=== PATIENT | male | born 1940 | race Caucasian/White ===

== ENCOUNTER 2017-03-11 17:44 | Inpatient (IN) | payer MEDICARE, OTHER ==
[~2017-03-11] VITALS: Ht 190.5 cm; Wt 141.5 kg
[2017-03-11] MEDS ORDERED: morphine SULFATE 10 MG/ML, 1ML IVPush PRN (21:00)
[2017-03-11] MEDS ORDERED: BISACODYL 10 MG SUPP PR PRN (21:00)
[2017-03-11] MEDS ORDERED: POLYETHYLENE GLYCOL 17 GM PACKET PO PRN (21:00)
[2017-03-11] MEDS ORDERED: OXYcodone IR 5MG TABLET PO PRN (21:00)
[2017-03-11] MEDS ORDERED: ENALAPRILAT 1.25 MG/ML, 2ML IVPush PRN (21:00)
[2017-03-11] MEDS ORDERED: ONDANSETRON 2MG/ML, 2ML IVPush PRN (21:00)
[2017-03-11] MEDS ORDERED: ACETAMINOPHEN 325 MG TABLET PO PRN (21:00)
[2017-03-11] MEDS ORDERED: PLEASE ENTER HEIGHT AND WEIGHT MC SCH (22:00)
[2017-03-11] MEDS ORDERED: PLEASE ENTER ALLERGIES MC SCH ×4 (22:00→23:45)
[2017-03-11] MEDS ORDERED: FLUO20CA8 PO (22:20)
[2017-03-11] MEDS ORDERED: BENA1TAB PO (22:22)
[2017-03-11] MEDS ORDERED: ASPI-496 PO (22:23)
[2017-03-11] MEDS ORDERED: FINA5TAB4 PO (22:24)
[2017-03-11 22:36] VITALS: BP 119/79
[2017-03-11 22:37] VITALS: BP 119/79
[2017-03-12 00:05] LABS: PATH.CAST-FLAG NOT PRESENT; SPERM-FLAG NOT PRESENT; SRC-FLAG NOT PRESENT; XTAL-FLAG NOT PRESENT; YLC-FLAG NOT PRESENT
[2017-03-12 02:00] VITALS: BP 125/76
[2017-03-12 05:16] LABS: HEMATOCRIT 39.2 % (39.2-51.8); HEMOGLOBIN 12.9 g/dL (13.7-18.0); WHITE BLOOD COUNT 9.7 x10^3/uL (3.4-10)
[2017-03-12 05:29] LABS: ASPARTATE AMINO TRANSFERASE 18 U/L (15-37); BLOOD UREA NITROGEN 17 mg/dL (7-18)
[2017-03-12] MEDS: BENAZEPRIL 10 MG TABLET PO SCH (08:50)
[2017-03-12] MEDS: HYDROCHLOROTHIAZIDE 12.5 MG CAPSULE PO SCH (08:51)
[2017-03-12] MEDS: FLUOXETINE 20 MG CAPSULE PO SCH (08:51)
[2017-03-12] MEDS: FINASTERIDE 5 MG TABLET PO SCH (08:51)
[2017-03-12] MEDS ORDERED: SENNA/DOCUSATE TABLET PO SCH (09:00)
[2017-03-12 09:02] VITALS: BP 127/79
[2017-03-12 13:39] VITALS: BP 154/91
[2017-03-12] MEDS ORDERED: EPINEPHRINE 1 MG/ML, 1ML ONE (18:24)
[2017-03-12] MEDS ORDERED: LIDOCAINE/PF 1%, 30ML ONE (18:24)
[2017-03-12] MEDS ORDERED: ROPIvacaine/PF 0.5%, 30 ML ONE (18:24)
[2017-03-12] MEDS ORDERED: BUPIVACAINE/PF 0.5% ONE (18:27)
[2017-03-12] MEDS ORDERED: FENTANYL PF 250 MCG/5ML ONE (18:27)
[2017-03-12] MEDS ORDERED: HYDROmorphone 1 MG/ML, 1ML IV PRN ×2 (18:30→22:30)
[2017-03-12] MEDS ORDERED: hydrALAzine 20 MG/ML, 1ML IV PRN (18:30)
[2017-03-12] MEDS ORDERED: ALBUTEROL/IPRATROPIUM 2.5MG/0.5MG, 3 ML NPPB PRN (18:30)
[2017-03-12] MEDS ORDERED: METOPROLOL 1 MG/ML, 5ML IV PRN (18:30)
[2017-03-12] MEDS ORDERED: FENTANYL PF 100 MCG/2ML IV PRN (18:30)
[2017-03-12] MEDS ORDERED: PROMETHAZINE 25 MG/ML, 1ML IV PRN (18:30)
[2017-03-12] MEDS ORDERED: OXYcodone 5 MG/5 ML ORAL.SOL UDC PO PRN (18:30)
[2017-03-12] MEDS ORDERED: DEXAMETHASONE 4 MG/ML, 1ML ONE (18:45)
[2017-03-12] MEDS ORDERED: ONDANSETRON 2MG/ML, 2ML ONE (18:45)
[2017-03-12] MEDS ORDERED: KETOROLAC 30 MG/1 ML ONE (18:45)
[2017-03-12] MEDS ORDERED: SUCCINYLCHOLINE 20 MG/ML, 10ML ONE (18:45)
[2017-03-12] MEDS ORDERED: PHENYLEPHRINE 10 MG/ML ONE (18:45)
[2017-03-12] MEDS ORDERED: METOPROLOL 1 MG/ML, 5ML ONE (18:45)
[2017-03-12] MEDS ORDERED: EPHEDRINE 50 MG/ML, 1ML ONE (18:45)
[2017-03-12] MEDS ORDERED: PROPOFOL 10 MG/ML, 20ML ONE (18:45)
[2017-03-12] MEDS ORDERED: CEFAZOLIN 1,000 MG ONE (18:45)
[2017-03-12] MEDS ORDERED: TRANEXAMIC ACID 100 MG/ML, 10ML ONE ×2 (19:17)
[2017-03-12] MEDS ORDERED: ACETAMINOPHEN 650 MG/20.3 ML UDC ONE (20:57)
[2017-03-12] MEDS ORDERED: ACETAMINOPHEN 325 MG TABLET ONE (20:57)
[2017-03-12] MEDS ORDERED: OXYcodone 5 MG/5 ML ORAL.SOL UDC ONE (20:58)
[2017-03-12] MEDS ORDERED: BISACODYL 10 MG SUPP PR PRN (22:30)
[2017-03-12] MEDS ORDERED: HYDROmorphone 1 MG/ML, 1ML IM PRN (22:30)
[2017-03-12] MEDS ORDERED: PROMETHAZINE 25 MG/ML, 1ML IM PRN (22:30)
[2017-03-12] MEDS ORDERED: ALUMINUM/MAG/SIMETHICONE 30 ML UDC PO PRN (22:30)
[2017-03-12] MEDS ORDERED: SENNA/DOCUSATE TABLET PO PRN (22:30)
[2017-03-12] MEDS ORDERED: MAGNESIUM HYDROXIDE 8%, 30ML UDC PO PRN (22:30)
[2017-03-12] MEDS ORDERED: ACETAMINOPHEN 325 MG TABLET PO PRN (22:30)
[2017-03-12] MEDS ORDERED: ONDANSETRON 2MG/ML, 2ML IV PRN (22:30)
[2017-03-12] MEDS: CEFAZOLIN PMX 2GM/50ML 50 ML IVPB SCH (23:20)
[2017-03-12 23:52] VITALS: BP 100/56
[2017-03-13 03:51] VITALS: BP 119/68
[2017-03-13 05:07] LABS: BLOOD UREA NITROGEN 21 mg/dL (7-18)
[2017-03-13 05:10] LABS: HEMATOCRIT 35.8 % (39.2-51.8); HEMOGLOBIN 11.8 g/dL (13.7-18.0); WHITE BLOOD COUNT 12.9 x10^3/uL (3.4-10)
[2017-03-13 07:15] VITALS: BP 118/76
[2017-03-13] MEDS: CEFAZOLIN PMX 2GM/50ML 50 ML IVPB SCH ×2 (07:22→15:47)
[2017-03-13] MEDS: MULTIVITAMINS/MINERALS TABLET PO SCH (08:57)
[2017-03-13] MEDS: FINASTERIDE 5 MG TABLET PO SCH (08:57)
[2017-03-13] MEDS: HYDROCHLOROTHIAZIDE 12.5 MG CAPSULE PO SCH (08:58)
[2017-03-13] MEDS: FLUOXETINE 20 MG CAPSULE PO SCH (08:59)
[2017-03-13] MEDS: DOCUSATE 100 MG CAPSULE PO SCH ×2 (09:00→20:50)
[2017-03-13] MEDS: OXYcodone/APAP 5/325MG TABLET PO PRN ×2 (09:00→16:32)
[2017-03-13] MEDS: BENAZEPRIL 10 MG TABLET PO SCH (09:00)
[2017-03-13] MEDS: SODIUM CHLORIDE 0.9% 1,000 ML IV SCH ×2 (10:26→17:48)
[2017-03-13] MEDS ORDERED: ENOXAPARIN 30 MG/0.3 ML SQ ONE (14:00)
[2017-03-13 15:30] VITALS: BP 124/71
[2017-03-13 18:27] VITALS: BP 108/66
[2017-03-14 00:48] VITALS: BP 112/67
[2017-03-14] MEDS: SODIUM CHLORIDE 0.9% 1,000 ML IV SCH ×2 (01:17→09:38)
[2017-03-14 05:33] LABS: HEMATOCRIT 31.6 % (39.2-51.8); HEMOGLOBIN 10.5 g/dL (13.7-18.0); WHITE BLOOD COUNT 11.6 x10^3/uL (3.4-10)
[2017-03-14 07:10] VITALS: BP 127/73
[2017-03-14] MEDS: HYDROCHLOROTHIAZIDE 12.5 MG CAPSULE PO SCH (09:50)
[2017-03-14] MEDS: DOCUSATE 100 MG CAPSULE PO SCH ×2 (09:50→21:25)
[2017-03-14] MEDS: FINASTERIDE 5 MG TABLET PO SCH (09:50)
[2017-03-14] MEDS: OXYcodone/APAP 5/325MG TABLET PO PRN ×4 (09:50→21:25)
[2017-03-14] MEDS: FLUOXETINE 20 MG CAPSULE PO SCH (09:51)
[2017-03-14] MEDS: MULTIVITAMINS/MINERALS TABLET PO SCH (09:51)
[2017-03-14] MEDS: BENAZEPRIL 10 MG TABLET PO SCH (09:51)
[2017-03-14 13:50] VITALS: BP 120/75
[2017-03-14] MEDS ORDERED: BISACODYL 10 MG SUPP PR PRN ×2 (14:00)
[2017-03-14] MEDS ORDERED: ENALAPRILAT 1.25 MG/ML, 2ML IVPush PRN (14:00)
[2017-03-14] MEDS ORDERED: ALUMINUM/MAG/SIMETHICONE 30 ML UDC PO PRN (14:00)
[2017-03-14] MEDS ORDERED: PROMETHAZINE 25 MG/ML, 1ML IM PRN (14:00)
[2017-03-14] MEDS ORDERED: ONDANSETRON 2MG/ML, 2ML IV PRN (14:00)
[2017-03-14] MEDS ORDERED: MAGNESIUM HYDROXIDE 8%, 30ML UDC PO PRN (14:00)
[2017-03-14] MEDS ORDERED: ACETAMINOPHEN 325 MG TABLET PO PRN (14:00)
[2017-03-14] MEDS ORDERED: POLYETHYLENE GLYCOL 17 GM PACKET PO PRN (14:00)
[2017-03-14 19:33] VITALS: BP 119/73
[2017-03-14] MEDS: LATANOPROST OPHTH 0.005%, 2.5ML LEFTEYE SCH (21:00)
[2017-03-14] MEDS: ASPIRIN 325 MG TABLET PO SCH (21:25)
[2017-03-15 05:15] VITALS: BP 125/76
[2017-03-15 06:41] VITALS: BP 134/82
[2017-03-15] MEDS: ASPIRIN 325 MG TABLET PO SCH ×2 (09:00→20:20)
[2017-03-15] MEDS: OXYcodone/APAP 5/325MG TABLET PO PRN ×2 (09:00→20:21)
[2017-03-15] MEDS: FLUOXETINE 20 MG CAPSULE PO SCH (09:00)
[2017-03-15] MEDS: DOCUSATE 100 MG CAPSULE PO SCH ×2 (09:00→20:20)
[2017-03-15] MEDS: BENAZEPRIL 10 MG TABLET PO SCH (09:00)
[2017-03-15] MEDS: FINASTERIDE 5 MG TABLET PO SCH (09:00)
[2017-03-15] MEDS: MULTIVITAMINS/MINERALS TABLET PO SCH (09:00)
[2017-03-15] MEDS: HYDROCHLOROTHIAZIDE 12.5 MG CAPSULE PO SCH (09:00)
[2017-03-15 13:32] VITALS: BP 136/79
[2017-03-15 19:30] VITALS: BP 147/78
[2017-03-15] MEDS: LATANOPROST OPHTH 0.005%, 2.5ML LEFTEYE SCH (20:21)
[2017-03-16 04:26] VITALS: BP 147/78
[2017-03-16 07:26] VITALS: BP 152/92
[2017-03-16 07:28] VITALS: BP 147/98
[2017-03-16] MEDS ORDERED: ASPI325T17 PO (08:13)
[2017-03-16] MEDS ORDERED: DOCU-131 PO (08:13)
[2017-03-16] MEDS ORDERED: MULT-484 PO (08:13)
[2017-03-16] MEDS ORDERED: OXYC1TAB7 PO (08:13)
[2017-03-16] MEDS: OXYcodone/APAP 5/325MG TABLET PO PRN (08:48)
[2017-03-16] MEDS: ASPIRIN 325 MG TABLET PO SCH (08:48)
[2017-03-16] MEDS: DOCUSATE 100 MG CAPSULE PO SCH (08:48)
[2017-03-16] MEDS: BENAZEPRIL 10 MG TABLET PO SCH (08:48)
[2017-03-16] MEDS: HYDROCHLOROTHIAZIDE 12.5 MG CAPSULE PO SCH (08:48)
[2017-03-16] MEDS: MULTIVITAMINS/MINERALS TABLET PO SCH (08:48)
[2017-03-16 09:42] LABS: HEMATOCRIT 35.3 % (39.2-51.8); HEMOGLOBIN 11.6 g/dL (13.7-18.0); WHITE BLOOD COUNT 10.9 x10^3/uL (3.4-10)
[2017-03-16 09:46] LABS: BLOOD UREA NITROGEN 15 mg/dL (7-18)
[2017-03-16] MEDS ORDERED: RIVA20TA PO (10:27)
[2017-03-16 13:39] VITALS: BP 117/82
[2017-03-17] MEDS ORDERED: RIVAROXABAN 20 MG TABLET PO SCH (06:00)
== END 2017-03-16 15:03 | DRG 470 ==
LOC: 4NOR 20:36
PROVIDERS: ADMIT Family Medicine; ATTEND Family Medicine
PROC: 0SRS0JZ Replacement of Left Hip Joint, Femoral Surface with Synthetic Substitute, Open Approach (ICD-10-PCS; principal; 2017-03-12 18:30)
DX: S72.012A Unspecified intracapsular fracture of left femur, initial encounter for closed fracture (principal); E44.0 Moderate protein-calorie malnutrition; D68.69 Other thrombophilia; I48.92 Unspecified atrial flutter; I48.91 Unspecified atrial fibrillation; E66.9 Obesity, unspecified; I10 Essential (primary) hypertension; D72.829 Elevated white blood cell count, unspecified; F17.210 Nicotine dependence, cigarettes, uncomplicated; Z96.653 Presence of artificial knee joint, bilateral; Z66 Do not resuscitate; W18.39XA Other fall on same level, initial encounter; Z79.01 Long term (current) use of anticoagulants; Z83.3 Family history of diabetes mellitus; Z68.39 Body mass index [BMI] 39.0-39.9, adult; Y93.89 Activity, other specified; Y92.89 Other specified places as the place of occurrence of the external cause; Y99.8 Other external cause status
CPT/HCPCS: 36415; 72170; 80048; 80053; 81001; 82040; 85025; 93005; J0171; J0690; J1100; J1650; J1885; J2405; J2704; J2795; J3010; J3490; C1776; J0330; J2270; J2370; J7030